=== PATIENT | female | born 1945 | race Caucasian/White ===

== ENCOUNTER → 2017-01-22 | Day surgery (SDC) | payer OTHER ==
[~2017-01-22] VITALS: Ht 149.9 cm; Wt 75.5 kg
[~2017-01-22] MED LIST: AMLO2.5T PO; CALC8.5C CHEW; CETI10 PO; CHLORHEXIDINE GLUCONATE 2 % 1 PACK (2 CLOTHS) TOPICAL PRN; CO Q10CA PO; DYAZ37.52 PO; ESTR0.5T PO; FAMOTIDINE 20 MG/2 ML VIAL ONE; FISH1000 PO; FISH500C PO; FOLI400T30 PO; FOSA35TA2 PO; FOSA70TA PO; GEMF600 PO; INSULIN HUMAN REGULAR 1,000 UNITS/10 ML VIAL SQ PRN; KETOROLAC TROMETHAMINE 60 MG/2 ML (IM) VIAL IM ONE; LACTATED RINGER'S 1000 ML IV PRN; LEVO88TA2 PO; MAGN400T24 PO; MEDR2.5T4 PO; METOPROLOL TARTRATE 25 MG TAB PO PRN; MIDAZOLAM HCL 2 MG/2 ML VIAL ONE; OMEP20CA5 PO; OMEP20TA PO; ONDANSETRON HCL 4 MG/2 ML VIAL IV PUSH ONE; OXYC-360 PO; OYST500T77 PO; POVIDONE IODINE 5% (ANTISEPSIS KIT) 4 APPLICATIONS EACH NARE PRN; PROPOFOL 200 MG/20 ML AMP IV ONE; SODIUM CHLORID 0.9% 500 ML IV PRN; TAB-TAB PO; TRIL135C PO; [UNRECOGNIZED DRUG - OTHER]; [UNRECOGNIZED DRUG - OTHER] PO; ceFAZolin 1,000 MG/NS 100 ML IV SCH; prempro PO
[2017-01-22 08:32] VITALS: BP 145/81; PULSE 86; RESP 18; TEMP 98.3; O2SAT 96
[2017-01-22 10:55] VITALS: PULSE 84
[2017-01-22 11:50] VITALS: PULSE 83
[2017-01-22 12:40] VITALS: BP 150/69; PULSE 62; RESP 16; TEMP 97.9; O2SAT 95
--- NOTE | 2017-01-22 14:16 | PD.OP ---
cc: Berta Schneider MD Operative Report Date of Surgery: Jan 22, 2017 Preoperative Diagnosis: (1) Endometrial polyp (2) Postmenopausal bleeding Postoperative Diagnosis: (1) Endometrial polyp (2) Postmenopausal bleeding Procedure: Hysteroscopy with polpectomy and dilation and curettage Anesthesia: General by LMA; Dr. Ferrera Surgeon: Anastacia Estes Lead Rider(s): Charlie Belcher Surgeon: n/a Operation and Findings: Indications: [-] Findings: Patient was found on hysteroscopic view to have polypoid endometrium in the fundus of the uterus confirmed to be removed by repeat hysteroscopy post dilation and curettage. She sounded to 11cm. Procedure: Patient was brought to the OR and laid supine on the table. After inducing general anesthesia and inserting LMA she was positioned in low stirrups in dorso-lithotomy position. An open-sided speculum was placed in the vagina after Betadine prep and time out. The anterior lip of the cervix was grasped with a single tooth tenaculum, and the cervix was dilated to accept a standard rigid hysteroscope. After viewing, the polypoid tissue was extracted by medium curette. The endometrium was thoroughly sampled using a medium sharp curet. Moderate tissue returned. A separate curettage of the cervix yielded only small tissue. A second hysteroscopic view confirmed that all the findings described above were included in the specimen. The procedure being complete, the instruments were removed, the patient was replaced supine and she was awakened. She was transferred to the PACU breathing on her own in stable condition. Sponge, needle, and instrument counts were correct. Anastacia Estes MD Jan 22, 2017 14:16
== END | disposition home or self-care (01) ==
LOC: PHSDC 07:49
PROVIDERS: ATTEND Obstetrics & Gynecology
DX: N84.0 Polyp of corpus uteri (principal); N95.0 Postmenopausal bleeding; N88.2 Stricture and stenosis of cervix uteri; E11.9 Type 2 diabetes mellitus without complications; E03.9 Hypothyroidism, unspecified
CPT/HCPCS: 00952; 58558; 82948; 88305; 88361; J0690; J1885; J2250; J2405; J7120

== ENCOUNTER 2017-05-01 15:24 | Emergency (ER) | payer OTHER ==
[~2017-05-01] VITALS: Ht 152.4 cm; Wt 76.3 kg
[~2017-05-01 15:24] MED LIST changes: -CHLORHEXIDINE GLUCONATE 2 % 1 PACK (2 CLOTHS) TOPICAL PRN; -DYAZ37.52 PO; -FAMOTIDINE 20 MG/2 ML VIAL ONE; -FISH500C PO; -FOLI400T30 PO; -FOSA35TA2 PO; -GEMF600 PO; -INSULIN HUMAN REGULAR 1,000 UNITS/10 ML VIAL SQ PRN; -KETOROLAC TROMETHAMINE 60 MG/2 ML (IM) VIAL IM ONE; -LACTATED RINGER'S 1000 ML IV PRN; -METOPROLOL TARTRATE 25 MG TAB PO PRN; -MIDAZOLAM HCL 2 MG/2 ML VIAL ONE; -OMEP20CA5 PO; -OMEP20TA PO; +OMEP20TA93 PO; -ONDANSETRON HCL 4 MG/2 ML VIAL IV PUSH ONE; -OXYC-360 PO; -OYST500T77 PO; -POVIDONE IODINE 5% (ANTISEPSIS KIT) 4 APPLICATIONS EACH NARE PRN; -PROPOFOL 200 MG/20 ML AMP IV ONE; -SODIUM CHLORID 0.9% 500 ML IV PRN; -TAB-TAB PO; -TRIL135C PO; -[UNRECOGNIZED DRUG - OTHER]; -[UNRECOGNIZED DRUG - OTHER] PO; -ceFAZolin 1,000 MG/NS 100 ML IV SCH; -prempro PO
[2017-05-01 15:36] VITALS: BP 152/69; PULSE 81; RESP 16; TEMP 97.6; O2SAT 95
[2017-05-01] MEDS ORDERED: NASAL CROM (15:59)
[2017-05-01] MEDS ORDERED: METF500T PO (15:59)
[2017-05-01] MEDS ORDERED: GABA100C4 PO (15:59)
[2017-05-01] MEDS ORDERED: LOSA25TA PO (15:59)
[2017-05-01] MEDS ORDERED: NAPR500T2 PO (15:59)
[2017-05-01] MEDS ORDERED: ROBA750T PO (15:59)
[2017-05-01] MEDS ORDERED: SODIUM CHLOR 0.9% 1000 ML INJ 1,000 ML IV ONE (16:07)
[2017-05-01] MEDS ORDERED: SODIUM CHLORIDE 0.9% FLUSH 10 ML FLUSH IVF PRN (16:15)
[2017-05-01] MEDS ORDERED: diphenhydrAMINE HCL 50 MG/ML VIAL IVP ONE (16:15)
[2017-05-01] MEDS ORDERED: PROCHLORPERAZINE INJ 10 MG/2 ML VIAL IVP ONE (16:15)
[2017-05-01] MEDS ORDERED: MORPHINE SULFATE 8 MG/ML INJ IV PUSH ONE (16:15)
--- NOTE | 2017-05-01 16:19 | PD ---
HPI Chief Complaint: Headache Time Seen by Provider: 15:41 Travel History International Travel<30 days: No Contact w/Intl Traveler<30days: No Traveled to known affect area: No History of Present Illness HPI The patient is a 71-year-old female who presents to the emergency department for headache. Patient is a 1 month history of headache. The patient 's headache started over the bilateral cervical neck area, radiates to the posterior aspect of the head, and has progressed over the last month. The headache now radiates to the frontal temporal or bilateral, throbbing, extends from the neck up into the head, and is not improved with massage. The patient was taken Tylenol and Excedrin with mild relief of her symptoms. However, she saw her primary physician yesterday who changed her to naproxen and Robaxin, however, patient's headache has progressed. She denies any trauma to the neck, does state she's been getting massages but denies any chiropractor manipulation. She does complain of mild nausea secondary to the headache but denies any photophobia or phonophobia. She denies any acute weakness of the upper or lower extremities. She states she has had no imaging of the brain since the onset of the headache. [facility] Past Medical History Cancer: No Cardiovascular Problems: Yes (htn on meds) Diabetes: Yes (type 2) Patient Takes Glucophage: No Diminished Hearing: No Endocrine: No Gastrointestinal Disorders: No Glaucoma: No Genitourinary: No Hepatitis: No Hiatal Hernia: No Hypertension: Yes Immune Disorder: No Musculoskeletal: Yes (OSTEOPOROSIS, LEG CRAMPS) Neurologic: No Psychiatric: No Respiratory: Yes (POST NASAL DRIP) Thyroid Disease: Yes (HYPOTHYROIDISM) Tetanus Vaccination: Unknown ?: Not Past Surgical History Abdominal Surgery: Yes (gallbladder removed) AICD: No Cardiac Surgery: No Ear Surgery: No Endocrine Surgery: No Eye Surgery: No Genitourinary Surgery: No Gynecologic Surgery: No Joint Replacement: No Neurologic Surgery: No Oral Surgery: No Pacemaker: No Thoracic Surgery: No Other Surgery: Yes (COLONOSCOPY) Social History Alcohol Use: No Tobacco Use: No Substance Use: No Allergies-Medications (Allergen,Severity, Reaction): Coded Allergies: chlorpheniramine (Unverified Adverse Reaction, Severe, Shortness of Breath , 05/01/17) codeine (Unverified Adverse Reaction, Severe, Shortness of Breath, 05/01/17 ) guaifenesin (Unverified Adverse Reaction, Severe, Shortness of Breath, 05/01/17) hydrocodone (Unverified Adverse Reaction, Severe, Shortness of Breath, 05/01/17) Reported Meds & Prescriptions Reported Meds & Active Scripts Active Reported Gabapentin 100 Mg Cap 100 Mg PO TID Robaxin (Methocarbamol) 750 Mg Tab 750 Mg PO TID Naproxen 500 Mg Tab 500 Mg PO BID [Nasal Crom] Metformin (Metformin HCl) 500 Mg Tab 500 Mg PO DAILY With a meal Losartan (Losartan Potassium) 25 Mg Tab 12.5 Mg PO DAILY Medroxyprogesterone Acetate 2.5 Mg Tablet PO DAILY Estradiol 0.5 Mg Tab 0.5 Mg PO DAILY Magnesium (Magnesium Oxide) 400 Mg Tablet 250 Mg PO DAILY Omeprazole 20 Mg Tab 20 Mg PO DAILY Co Q 10 (Coenzyme Q10 (Ubidecarenone)) 10 Mg Cap PO DAILY Fish Oil ([place]-3 Fatty Acids) 1,000 Mg Cap PO DAILY Levothyroxine (Levothyroxine Sodium) 88 Mcg Tab 88 Mcg PO DAILY Viactiv (Calcium-Vitamins D & K) 500-500-40 Mg-Unit-Mcg Chew 1 Ea CHEW Fosamax (Alendronate Sodium) 70 Mg Tab 35 Mg PO Q7D Review of Systems Except as stated in HPI: all other systems reviewed are Neg General / Constitutional: No: Fever Eyes: No: Blurred Vision, Photophobia HENT: Positive: Headaches, Neck Pain, No: Lightheadedness Cardiovascular: No: Chest Pain or Discomfort Respiratory: No: Shortness of Breath Gastrointestinal: No: Nausea, Vomiting, Abdominal Pain Musculoskeletal: No: Weakness Neurologic: Positive: Headache, No: Dizziness, Focal Abnormalities, Change in Mentation, Slurred Speech, Paresthesia, Sensory Disturbance Physical Exam Narrative GENERAL: Awake, alert, pleasant 71-year-old female who appears her stated age and appears to be in moderate discomfort. SKIN: Focused skin assessment warm/dry. HEAD: Atraumatic. Normocephalic. EYES: Pupils equal and round. Pupils are 4 mm bilateral and reactive. EOMs are intact. Patient is able to see fingers at a distance of 2 feet without difficulty. No evidence of Corine's syndrome. ENT: No nasal bleeding or discharge. Mucous membranes pink and moist. NECK: Trachea midline. No JVD. Mild tenderness of the right trapezius and the paracervical vertebral muscles bilateral. No meningeal signs. CARDIOVASCULAR: Regular rate and rhythm. No murmur appreciated. RESPIRATORY: No accessory muscle use. Clear to auscultation. Breath sounds equal bilaterally. GASTROINTESTINAL: Abdomen soft, non-tender, nondistended. MUSCULOSKELETAL: No obvious deformities. No clubbing. No cyanosis. No edema. NEUROLOGICAL: Awake and alert. No obvious cranial nerve deficits. Motor grossly within normal limits. Normal speech. Nonfocal on exam. Oriented 4. PSYCHIATRIC: Appropriate mood and affect; insight and judgment normal. Data Data Last Documented VS Vital Signs Date Time Temp Pulse Resp B/P (MAP) Pulse Ox O2 Delivery O2 Flow Rate FiO2 05/01/17 15:42 16 95 Room Air 05/01/17 15:36 97.6 81 152/69 (96) Orders Orders Complete Blood Count With Diff (05/01/17 16:07) Basic Metabolic Panel (Bmp) (05/01/17 16:07) W[place]gren Sedimentation Rate (05/01/17 16:07) Prothrombin Time / Inr (Pt) (05/01/17 16:07) Act Partial Throm Time (Ptt) (05/01/17 16:07) Ct Brain W/O Iv Contrast(Rout) (05/01/17 16:07) Ecg Monitoring (05/01/17 16:07) Iv Access Insert/Monitor (05/01/17 16:07) Oximetry (05/01/17 16:07) Sodium Chloride 0.9% Flush (Ns Flush) (05/01/17 16:15) Prochlorperazine Inj (Compazine Inj) (05/01/17 16:15) Diphenhydramine Inj (Benadryl Inj) (05/01/17 16:15) Sodium Chlor 0.9% 1000 Ml Inj (Ns 1000 M (05/01/17 16:07) Morphine Inj (Morphine Inj) (05/01/17 16:15) Ketorolac Inj (Toradol Inj) (05/01/17 17:00) Ed Discharge Order (05/01/17 17:07) Labs Laboratory Tests Test 05/01/17 16:20 White Blood Count 6.7 TH/MM3 Red Blood Count 4.96 MIL/MM3 Hemoglobin 15.1 GM/DL Hematocrit 44.6 % Mean Corpuscular Volume 89.9 FL Mean Corpuscular Hemoglobin 30.4 PG Mean Corpuscular Hemoglobin Concent 33.9 % Red Cell Distribution Width 12.1 % Platelet Count 208 TH/MM3 Mean Platelet Volume 9.5 FL Neutrophils (%) (Auto) 70.6 % Lymphocytes (%) (Auto) 18.8 % Monocytes (%) (Auto) 7.1 % Eosinophils (%) (Auto) 3.2 % Basophils (%) (Auto) 0.3 % Neutrophils # (Auto) 4.7 TH/MM3 Lymphocytes # (Auto) 1.3 TH/MM3 Monocytes # (Auto) 0.5 TH/MM3 Eosinophils # (Auto) 0.2 TH/MM3 Basophils # (Auto) 0.0 TH/MM3 CBC Comment DIFF FINAL Differential Comment Blood Urea Nitrogen 21 MG/DL Creatinine 0.92 MG/DL Random Glucose 118 MG/DL Calcium Level 9.7 MG/DL Sodium Level 136 MEQ/L Potassium Level 3.9 MEQ/L Chloride Level 100 MEQ/L Carbon Dioxide Level 25.3 MEQ/L Anion Gap 11 MEQ/L Estimat Glomerular Filtration Rate 60 ML/MIN MDM Medical Decision Making Medical Screen Exam Complete: Yes Emergency Medical Condition: Yes Medical Record Reviewed: Yes Interpretation(s) Laboratory Tests Test 05/01/17 16:20 White Blood Count 6.7 TH/MM3 Red Blood Count 4.96 MIL/MM3 Hemoglobin 15.1 GM/DL Hematocrit 44.6 % Mean Corpuscular Volume 89.9 FL Mean Corpuscular Hemoglobin 30.4 PG Mean Corpuscular Hemoglobin Concent 33.9 % Red Cell Distribution Width 12.1 % Platelet Count 208 TH/MM3 Mean Platelet Volume 9.5 FL Neutrophils (%) (Auto) 70.6 % Lymphocytes (%) (Auto) 18.8 % Monocytes (%) (Auto) 7.1 % Eosinophils (%) (Auto) 3.2 % Basophils (%) (Auto) 0.3 % Neutrophils # (Auto) 4.7 TH/MM3 Lymphocytes # (Auto) 1.3 TH/MM3 Monocytes # (Auto) 0.5 TH/MM3 Eosinophils # (Auto) 0.2 TH/MM3 Basophils # (Auto) 0.0 TH/MM3 CBC Comment DIFF FINAL Differential Comment Blood Urea Nitrogen 21 MG/DL Creatinine 0.92 MG/DL Random Glucose 118 MG/DL Calcium Level 9.7 MG/DL Sodium Level 136 MEQ/L Potassium Level 3.9 MEQ/L Chloride Level 100 MEQ/L Carbon Dioxide Level 25.3 MEQ/L Anion Gap 11 MEQ/L Estimat Glomerular Filtration Rate 60 ML/MIN CT of the brain reveals normal examination for patient of this age Differential Diagnosis Differential diagnosis includes tension headache, occipital neuralgia, radiculopathy, subarachnoid hemorrhage, intracranial tumor, glaucoma, temporal arteritis, migraine, carotid/retrieval artery dissection. Narrative Course IV was established, labs are drawn and sent, and the patient was placed on cardiac telemetry monitoring and continuous pulse oximetry monitoring. The patient was administered Compazine, Benadryl, morphine, and IV fluids. CT of the brain was ordered. CT the brain was negative. The patient was reevaluated at 5 PM, her headache had significantly improved. A CT the brain was negative and creatinine was normal, the patient was administered Toradol 15 mg intravenously. The patient's sedimentation rate is pending, however, I doubt temporal arteritis. The patient has no meningeal signs or fever, headache has been intermittent for one month, I doubt subarachnoid hemorrhage or meningitis. The patient is advised to follow-up with her primary physician on an outpatient basis and if symptoms persist follow-up with neurology. She also notes she is scheduled for outpatient physical therapy in regards to the muscle spasms. I will write Fioricet as needed when necessary for pain, however, she is advised to avoid taking medications 2 often as she may get rebound headaches. The patient agrees and understands. She is stable for discharge home. The patient's will drive her home. Diagnosis Primary Impression: Cephalgia Qualified Codes: R51 - Headache Patient Instructions: General Instructions Additional Instructions: Medications as directed. Follow-up with her primary physician. Return if symptoms worsen or progress. Med/Other Pt SpecificInfo: Prescription(s) given Scripts Ukywqxnqvy-Gjnzszcxxooiu-Eezzntsv (Fioricet) 50-300-40 Mg Cap 1 CAP PO Q4H Y for HEADACHE, #12 CAP 0 Refills Prov: Angelo Ocasio MD 05/01/17 Disposition: 01 DISCHARGE HOME Condition: Stable Angelo Ocasio MD May 01, 2017 16:19
[2017-05-01 16:37] LABS: AUTOMATED NEUTROPHIL # 4.7 TH/MM3 (1.8-7.7); BASOPHIL % 0.3 % (0.0-2.0); EOSINOPHIL # 0.2 TH/MM3 (0-0.4); EOSINOPHIL % 3.2 % (0.0-4.0); HEMATOCRIT 44.6 % (35.0-46.0); HEMO FLAGS DIFF FINAL; LYMPH % 18.8 % (9.0-44.0); LYMPHOCYTE # 1.3 TH/MM3 (1.0-4.8); MEAN CELL VOLUME 89.9 FL (80.0-100.0); MEAN CORPUSCULAR HEMOGLOBIN 30.4 PG (27.0-34.0); MEAN CORPUSCULAR HGB CONC 33.9 % (32.0-36.0); MONO % 7.1 % (0.0-8.0); NEUT % 70.6 % (16.0-70.0); PLATELET COUNT 208 TH/MM3 (150-450); RED BLOOD COUNT 4.96 MIL/MM3 (4.00-5.30); RED CELL DISTRIBUTION WIDTH 12.1 % (11.6-17.2); WHITE BLOOD COUNT 6.7 TH/MM3 (4.0-11.0)
--- NOTE | 2017-05-01 16:40 | RADRPT ---
EXAM DATE/TIME: 05/01/2017 16:28 [facility] COMPARISON: No previous studies available for comparison. INDICATIONS : Cephalgia. RADIATION DOSE: 57.57 CTDIvol (mGy) MEDICAL HISTORY : Hypothyroidism. Diabetes mellitus type 2. Hypertension. SURGICAL HISTORY : Cholecystectomy. ENCOUNTER: Initial ACUITY: 1 day PAIN SCALE: 10/10 LOCATION: cranial TECHNIQUE: Multiple contiguous axial images were obtained of the head. Using automated exposure control and adj ustment of the mA and/or kV according to patient size, radiation dose was kept as low as reasonably a chievable to obtain optimal diagnostic quality images. DICOM format image data is available electro nically for review and comparison. FINDINGS: CEREBRUM: The ventricles are normal for age. No evidence of midline shift, mass lesion, hemorrhage or acute in farction. No extra-axial fluid collections are seen. POSTERIOR FOSSA: The cerebellum and brainstem are intact. The 4th ventricle is midline. The cerebellopontine angle i s unremarkable. EXTRACRANIAL: The visualized portion of the orbits is intact. SKULL: The calvaria is intact. No evidence of skull fracture. CONCLUSION: Normal examination for a patient of this age. James Chamorro MD on May 01, 2017 at 16:37 Board Certified Radiologist. This report was verified electronically.
[2017-05-01 16:43] LABS: POTASSIUM 3.9 MEQ/L (3.5-5.1)
[2017-05-01 16:46] LABS: BICARBONATE 25.3 MEQ/L (21.0-32.0)
[2017-05-01] MEDS ORDERED: KETOROLAC TROMETHAMINE 30 MG/ML (IVP) VIAL IV PUSH ONE (17:00)
[2017-05-01] MEDS ORDERED: BUTA1CAP PO (17:14)
[2017-05-01 17:23] LABS: APTT (PATIENT) 23.8 SEC (24.3-30.1); INTERNATIONAL NORMALIZED RATIO 0.9 RATIO; PROTHROMBIN TIME - PATIENT 10.4 SEC (9.8-11.6)
[2017-05-01 17:39] VITALS: RESP 16; O2SAT 93
[2017-05-01 17:40] VITALS: BP 189/89
== END 2017-05-01 17:58 | disposition home or self-care (01) ==
LOC: PHED 15:24
DX: R51 Headache (principal); E03.9 Hypothyroidism, unspecified; E11.9 Type 2 diabetes mellitus without complications; I10 Essential (primary) hypertension; Z79.84 Long term (current) use of oral hypoglycemic drugs; Z79.899 Other long term (current) drug therapy
CPT/HCPCS: 70450; 80048; 85025; 85610; 85652; 85730; 96361; 96374; 96375; 99285; J0780; J1200; J1885; J2270; J7030

== ENCOUNTER 2017-11-25 14:46 | Observation (INO) | payer OTHER ==
[~2017-11-25] VITALS: Ht 152.4 cm; Wt 73.6 kg
[~2017-11-25 14:46] MED LIST changes: -AMLO2.5T PO; +BUTA1CAP PO; -CETI10 PO; +GABA100C4 PO; +LOSA25TA PO; +METF500T PO; +NAPR500T2 PO; +NASAL CROM; +ROBA750T PO
[2017-11-25 15:02] VITALS: BP 160/75; PULSE 89; RESP 16; TEMP 97.7; O2SAT 96
--- NOTE | 2017-11-25 15:40 | PD ---
HPI Chief Complaint: GI Complaint Time Seen by Provider: 15:24 Travel History International Travel<30 days: No Contact w/Intl Traveler<30days: No Traveled to known affect area: No History of Present Illness HPI This is a 71-year-old female who presents to the emergency department with lightheadedness and dizziness that started immediately after eating lunch today associated with one episode of vomiting constant, severe, persistent in the emergency department. Her friend said she found her on the floor in the house. The patient says she did not pass out but she felt very very weak. She denies any fevers or chills. She denies any abdominal or chest pain. She has never had symptoms like this before. PFSH Past Medical History Cancer: No Cardiovascular Problems: Yes (htn on meds) Diabetes: Yes Diminished Hearing: No Endocrine: No Gastrointestinal Disorders: No Glaucoma: No Genitourinary: No Hepatitis: No Hiatal Hernia: No Hypertension: Yes Immune Disorder: No Musculoskeletal: Yes (OSTEOPOROSIS, LEG CRAMPS) Neurologic: No Psychiatric: No Respiratory: Yes (POST NASAL DRIP) Thyroid Disease: Yes (HYPOTHYROIDISM) Past Surgical History Abdominal Surgery: Yes (gallbladder removed) AICD: No Cardiac Surgery: No Ear Surgery: No Endocrine Surgery: No Eye Surgery: No Genitourinary Surgery: No Gynecologic Surgery: No Joint Replacement: No Neurologic Surgery: No Oral Surgery: No Pacemaker: No Thoracic Surgery: No Other Surgery: Yes (COLONOSCOPY) Social History Alcohol Use: No Tobacco Use: No Substance Use: No Allergies-Medications (Allergen,Severity, Reaction): Coded Allergies: chlorpheniramine (Unverified Adverse Reaction, Severe, Shortness of Breath , 11/25/17) codeine (Unverified Adverse Reaction, Severe, Shortness of Breath, 11/25/17 ) guaifenesin (Unverified Adverse Reaction, Severe, Shortness of Breath, ) hydrocodone (Unverified Adverse Reaction, Severe, Shortness of Breath, ) Reported Meds & Prescriptions Reported Meds & Active Scripts Active Fioricet (Ppbrdwtsab-Iwhexowzrurcb-Mhoubmvo) 50-300-40 Mg Cap 1 Cap PO Q4H PRN Reported Gabapentin 100 Mg Cap 100 Mg PO TID Robaxin (Methocarbamol) 750 Mg Tab 750 Mg PO TID Naproxen 500 Mg Tab 500 Mg PO BID [Nasal Crom] Metformin (Metformin HCl) 500 Mg Tab 500 Mg PO DAILY With a meal Losartan (Losartan Potassium) 25 Mg Tab 12.5 Mg PO DAILY Medroxyprogesterone Acetate 2.5 Mg Tablet PO DAILY Estradiol 0.5 Mg Tab 0.5 Mg PO DAILY Magnesium (Magnesium Oxide) 400 Mg Tablet 250 Mg PO DAILY Omeprazole 20 Mg Tab 20 Mg PO DAILY Co Q 10 (Coenzyme Q10 (Ubidecarenone)) 10 Mg Cap PO DAILY Fish Oil ([place]-3 Fatty Acids) 1,000 Mg Cap PO DAILY Levothyroxine (Levothyroxine Sodium) 88 Mcg Tab 88 Mcg PO DAILY Viactiv (Calcium-Vitamins D & K) 500-500-40 Mg-Unit-Mcg Chew 1 Ea CHEW Fosamax (Alendronate Sodium) 70 Mg Tab 35 Mg PO Q7D Review of Systems Except as stated in HPI: all other systems reviewed are Neg Physical Exam Narrative GENERAL: pale-appearing SKIN: Clammy and cool HEAD: Atraumatic. Normocephalic. EYES: Pupils equal and round. No injection or drainage. ENT: Moist mucous membranes NECK: Trachea midline. CARDIOVASCULAR: Regular rate and rhythm. No murmur appreciated. RESPIRATORY: Clear to auscultation. Breath sounds equal bilaterally. GASTROINTESTINAL: Abdomen soft, non-tender, nondistended. MUSCULOSKELETAL: No obvious deformities. NEUROLOGICAL: Awake and alert. No obvious cranial nerve deficits. Moving all extremities. PSYCHIATRIC: Appropriate mood and affect; insight and judgment normal. Data Data Last Documented VS Vital Signs Date Time Temp Pulse Resp B/P (MAP) Pulse Ox O2 Delivery O2 Flow Rate FiO2 11/25/17 18:39 88 16 165/80 (108) 95 Room Air 11/25/17 15:02 97.7 Orders Orders Complete Blood Count With Diff (11/25/17 15:35) Comprehensive Metabolic Panel (11/25/17 15:35) ^ Insert Iv (11/25/17 15:35) Lipase (11/25/17 15:35) Urinalysis - C+S If Indicated (11/25/17 15:35) Troponin I (11/25/17 15:35) Electrocardiogram (11/25/17 ) Sodium Chlor 0.9% 1000 Ml Inj (Ns 1000 M (11/25/17 15:45) Magnesium (Mg) (11/25/17 15:48) Blood Culture (11/25/17 17:05) Piperacil-Tazo 3.375 Gm Premix (Zosyn 3. (11/25/17 17:15) Ct Abd/Pel W Iv Contrast(Rout) (11/25/17 ) Iohexol 350 Inj (Omnipaque 350 Inj) (11/25/17 17:38) Chest, Single Ap (11/25/17 ) Admit Order (Ed Use Only) (11/25/17 18:56) Gabapentin (Neurontin) (11/26/17 09:00) Levothyroxine (Synthroid) (11/26/17 06:00) Losartan (Cozaar) (11/26/17 09:00) Labs Laboratory Tests Test 11/25/17 15:50 11/25/17 16:30 White Blood Count 15.0 TH/MM3 Red Blood Count 4.99 MIL/MM3 Hemoglobin 15.7 GM/DL Hematocrit 45.4 % Mean Corpuscular Volume 91.0 FL Mean Corpuscular Hemoglobin 31.5 PG Mean Corpuscular Hemoglobin Concent 34.7 % Red Cell Distribution Width 11.9 % Platelet Count 246 TH/MM3 Mean Platelet Volume 9.1 FL Neutrophils (%) (Auto) 83.2 % Lymphocytes (%) (Auto) 7.3 % Monocytes (%) (Auto) 5.6 % Eosinophils (%) (Auto) 1.3 % Basophils (%) (Auto) 2.6 % Neutrophils # (Auto) 12.5 TH/MM3 Lymphocytes # (Auto) 1.1 TH/MM3 Monocytes # (Auto) 0.8 TH/MM3 Eosinophils # (Auto) 0.2 TH/MM3 Basophils # (Auto) 0.4 TH/MM3 CBC Comment AUTO DIFF Differential Total Cells Counted 100 Neutrophils % (Manual) 74 % Band Neutrophils % 11 % Lymphocytes % 9 % Monocytes % 3 % Eosinophils % 1 % Basophils % 2 % Neutrophils # (Manual) 12.8 TH/MM3 Differential Comment FINAL DIFF MANUAL Platelet Estimate NORMAL Platelet Morphology Comment CLUMPED Red Cell Morphology Comment NORMAL Blood Urea Nitrogen 21 MG/DL Creatinine 1.00 MG/DL Random Glucose 135 MG/DL Total Protein 7.7 GM/DL Albumin 3.7 GM/DL Calcium Level 9.5 MG/DL Alkaline Phosphatase 29 U/L Aspartate Amino Transf (AST/SGOT) 31 U/L Alanine Aminotransferase (ALT/SGPT) 38 U/L Total Bilirubin 0.3 MG/DL Sodium Level 139 MEQ/L Potassium Level 3.9 MEQ/L Chloride Level 104 MEQ/L Carbon Dioxide Level 23.8 MEQ/L Anion Gap 11 MEQ/L Estimat Glomerular Filtration Rate 55 ML/MIN Magnesium Level 2.1 MG/DL Troponin I LESS THAN 0.02 NG/ML Lipase 132 U/L Urine Color YELLOW Urine Turbidity CLEAR Urine pH 6.0 Urine Specific [place] GREATER/EQUAL 1.030 Urine Protein 300 OR GREATER mg/dL Urine Glucose (UA) NEG mg/dL Urine Ketones TRACE mg/dL Urine Occult Blood TRACE Urine Nitrite NEG Urine Bilirubin NEG Urine Urobilinogen 0.2 MG/DL Urine Leukocyte Esterase NEG Urine WBC 0-2 /hpf Urine Squamous Epithelial Cells 0-5 /hpf Microscopic Urinalysis Comment CULT NOT INDICATED MDM Medical Decision Making Medical Screen Exam Complete: Yes Emergency Medical Condition: Yes Interpretation(s) EKG: Normal sinus rhythm, frequent PVCs Leukocytosis with 11% bands Electrolytes are reassuring Troponin is normal Lipase is 132 Blood Irma Farrell MD November 25, 2017 15:40
[2017-11-25] MEDS ORDERED: SODIUM CHLOR 0.9% 1000 ML INJ 1,000 ML IV ONE ×2 (15:45→23:15)
[2017-11-25 16:02] LABS: AUTOMATED NEUTROPHIL # 12.5 TH/MM3 (1.8-7.7); BASOPHIL # 0.4 TH/MM3 (0-0.2); BASOPHIL % 2.6 % (0.0-2.0); EOSINOPHIL # 0.2 TH/MM3 (0-0.4); EOSINOPHIL % 1.3 % (0.0-4.0); HEMATOCRIT 45.4 % (35.0-46.0); HEMOGLOBIN 15.7 GM/DL (11.6-15.3); LYMPH % 7.3 % (9.0-44.0); LYMPHOCYTE # 1.1 TH/MM3 (1.0-4.8); MEAN CORPUSCULAR HEMOGLOBIN 31.5 PG (27.0-34.0); MEAN CORPUSCULAR HGB CONC 34.7 % (32.0-36.0); MEAN PLATELET VOLUME 9.1 FL (7.0-11.0); MONO % 5.6 % (0.0-8.0); MONOCYTE # 0.8 TH/MM3 (0-0.9); NEUT % 83.2 % (16.0-70.0); PLATELET COUNT 246 TH/MM3 (150-450); RED BLOOD COUNT 4.99 MIL/MM3 (4.00-5.30); RED CELL DISTRIBUTION WIDTH 11.9 % (11.6-17.2)
[2017-11-25 16:16] LABS: CHLORIDE 104 MEQ/L (98-107); SODIUM (NA) 139 MEQ/L (136-145)
[2017-11-25 16:20] LABS: ALBUMIN 3.7 GM/DL (3.4-5.0); CALCIUM 9.5 MG/DL (8.5-10.1)
[2017-11-25 16:21] LABS: BICARBONATE 23.8 MEQ/L (21.0-32.0); BLOOD UREA NITROGEN 21 MG/DL (7-18); GLUCOSE,RANDOM 135 MG/DL (74-106)
[2017-11-25 16:22] LABS: BANDS 11 % (0-6); BASOPHILS 2 % (0-2); LYMPHOCYTES 9 % (9-44); MONOCYTES 3 % (0-8); NEUTROPHIL # MANUAL DIFF 12.8 TH/MM3 (1.8-7.7); POLYS (SEG NEUTROPHILS) 74 % (16-70)
[2017-11-25 16:24] LABS: ALT (GPT) 38 U/L (10-53); AST (GOT) 31 U/L (15-37); GLOMERULAR FILTRATION RATE 55 ML/MIN (>89)
[2017-11-25 16:25] LABS: TOTAL BILIRUBIN ADULT 0.3 MG/DL (0.2-1.0); TOTAL PROTEIN 7.7 GM/DL (6.4-8.2)
[2017-11-25 16:26] LABS: ALKALINE PHOSPHATASE 29 U/L (45-117)
[2017-11-25 16:28] LABS: TROPONIN I LESS THAN 0.02 NG/ML (0.02-0.05)
[2017-11-25 16:40] LABS: BILIRUBIN, URINE NEG (NEG); BLOOD, URINE TRACE (NEG); GLUCOSE,URINE NEG (NEG); KETONE, URINE TRACE mg/dL (NEG); NITRITE,URINE NEG (NEG); URINE COLOR YELLOW (YELLW/STRAW); URINE LEUKOCYTE ESTERASE NEG (NEG)
[2017-11-25 16:52] LABS: SQUAMOUS EPITHELIAL CELL URINE 0-5 /hpf (0-5); WBC, URINE 0-2 /hpf (0-5)
[2017-11-25] MEDS ORDERED: PIPERACIL-TAZO 3.375 GM PREMIX 50 ML IV ONE (17:15)
[2017-11-25 17:30] VITALS: BP 150/70; PULSE 100; RESP 20; O2SAT 96
[2017-11-25] MEDS ORDERED: METFORMIN HOLD POST IV CONTRAST SCH (17:30)
[2017-11-25] MEDS ORDERED: IOHEXOL 350 MG/ML 10 ML VIAL (for RAD DIAG) IVCONTRAST ONE (17:38)
--- NOTE | 2017-11-25 17:56 | RADRPT ---
EXAM DATE: 11/25/2017 5:42 PM EDT AGE/SEX: 71 years / Female INDICATIONS: Vomiting and weakness. CLINICAL DATA: This is the patient's initial encounter. Patient reports that signs and symptoms have been present for 1 day and indicates a pain score of 0/10. MEDICAL/SURGICAL HISTORY: Hypertension. Diabetes. Cholecystectomy. ORAL CONTRAST: No oral contrast ingested. RADIATION DOSE: 16.93 CTDI (mGy) COMPARISON: No prior [facility] exams available for comparison. TECHNIQUE: Multiple contiguous axial images were obtained through the abdomen and pelvis following b olus infusion of 85 ml Omnipaque 350 (iohexol) nonionic water-soluble contrast as a single exam dos e. No oral contrast ingested. Using automated exposure control and adjustment of the mA and/or kV ac cording to patient size, the radiation dose was kept as low as reasonably achievable to obtain optima l diagnostic quality images. FINDINGS: The limited portion of lung base visualized is clear. The appearance of the liver, spleen, pancreas, adrenal glands and left kidney is within normal limits . Incidental note is made of a 2.8 cm simple cyst arising from the right kidney. The abdominal aorta is normal in caliber. There is no retroperitoneal lymphadenopathy. The visualized loops of small and large bowel are unremarkable. No free air free fluid is seen. The examination does demonstrate a small ventral hernia just below the level of the xiphoid. There is omental fat herniated into the defect. There is no free fluid within the pelvis. No iliac or inguinal adenopathy is seen. Note is made of mu ltiple fibroids within the uterus. The visualized bony structures demonstrate degenerative changes but are otherwise intact. CONCLUSION: 1. No definite abnormality to explain the patient's abdominal pain identified. 2. Incidental 2.8 cm simple cyst arising from the right kidney. 3. The patient is post cholecystectomy. 4. Fibroids within the uterus. Electronically signed by: Smooth Rojas MD 11/25/2017 5:54 PM EDT
[2017-11-25 18:39] VITALS: BP 165/80; PULSE 88; RESP 16; O2SAT 95
--- NOTE | 2017-11-25 18:53 | RADRPT ---
EXAM DATE: 11/25/2017 6:51 PM EDT AGE/SEX: 71 years / Female INDICATIONS: Vomiting since this afternoon. CLINICAL DATA: This is the patient's initial encounter. Patient reports that signs and symptoms have been present for 1 day and indicates a pain score of 0/10. MEDICAL/SURGICAL HISTORY: None. None. COMPARISON: No prior [facility] exams available for comparison. FINDINGS: A single AP view of the chest demonstrates the lungs to be symmetrically aerated without evidence of mass, infiltrate or effusion. Mild cardiomegaly. Osseous structures are intact. CONCLUSION: Mild complicated cardiomegaly otherwise negative Electronically signed by: Neil Rojas MD 11/25/2017 6:52 PM EDT
[2017-11-25] MEDS ORDERED: RESP: ALBUTEROL 2.5 MG/IPRATROPIUM 0.5 MG NEB (PRN) NEB (19:00)
[2017-11-25] MEDS ORDERED: METOCLOPRAMIDE HCL 10 MG/2 ML VIAL IV PUSH PRN (19:00)
[2017-11-25] MEDS ORDERED: GLUCAGON 1 MG/ML VIAL OTHER PRN (19:00)
[2017-11-25] MEDS ORDERED: SODIUM CHLORIDE 0.9% FLUSH 10 ML FLUSH IV FLUSH PRN (19:00)
[2017-11-25] MEDS ORDERED: ACETAMINOPHEN 325 MG TAB PO PRN ×2 (19:00)
[2017-11-25] MEDS ORDERED: NALOXONE HCL 0.4 MG/ML AMP IV PUSH PRN (19:00)
[2017-11-25] MEDS ORDERED: DEXTROSE 50% IN WATER 50 ML VIAL(D50) IV PUSH PRN (19:00)
[2017-11-25] MEDS: SODIUM CHLOR 0.9% 1000 ML INJ 1,000 ML IV SCH (19:12)
[2017-11-25] MEDS ORDERED: PILL SPLITTER OTHER PRN (19:15)
[2017-11-25] MEDS ORDERED: hydrALAZINE HCL 25 MG TAB PO PRN (19:15)
[2017-11-25] MEDS: INSULIN ASPART SUPPLEMENTAL SCALE SQ SCH (21:00)
[2017-11-25] MEDS: SODIUM CHLORIDE 0.9% FLUSH 10 ML FLUSH IV FLUSH SCH (21:00)
[2017-11-25 21:14] VITALS: BP 153/64; PULSE 75; RESP 16; O2SAT 96
[2017-11-25 21:44] VITALS: BP 142/73; PULSE 65; RESP 20; TEMP 96.8; O2SAT 98
[2017-11-26 00:20] LABS: LACTIC ACID SEPSIS PROTOCOL 2.3 mmol/L (0.4-2.0)
[2017-11-26] MEDS: PIPERACIL-TAZO 3.375 GM PREMIX 50 ML IV SCH ×2 (00:51→09:45)
[2017-11-26 04:00] VITALS: BP 147/64; PULSE 59; RESP 20; TEMP 97.3; O2SAT 96
[2017-11-26] MEDS ORDERED: LEVOTHYROXINE SODIUM 88 MCG TAB PO SCH (06:00)
[2017-11-26] MEDS: SODIUM CHLOR 0.9% 1000 ML INJ 1,000 ML IV SCH (06:24)
[2017-11-26 06:41] LABS: AUTOMATED NEUTROPHIL # 4.2 TH/MM3 (1.8-7.7); BASOPHIL % 0.6 % (0.0-2.0); EOSINOPHIL # 0.3 TH/MM3 (0-0.4); EOSINOPHIL % 4.5 % (0.0-4.0); HEMATOCRIT 38.7 % (35.0-46.0); HEMOGLOBIN 13.2 GM/DL (11.6-15.3); LYMPH % 23.1 % (9.0-44.0); LYMPHOCYTE # 1.5 TH/MM3 (1.0-4.8); MEAN CELL VOLUME 91.7 FL (80.0-100.0); MEAN CORPUSCULAR HEMOGLOBIN 31.4 PG (27.0-34.0); MEAN CORPUSCULAR HGB CONC 34.2 % (32.0-36.0); MEAN PLATELET VOLUME 9.4 FL (7.0-11.0); MONO % 6.5 % (0.0-8.0); MONOCYTE # 0.4 TH/MM3 (0-0.9); NEUT % 65.3 % (16.0-70.0); PLATELET COUNT 212 TH/MM3 (150-450); RED BLOOD COUNT 4.22 MIL/MM3 (4.00-5.30); WHITE BLOOD COUNT 6.4 TH/MM3 (4.0-11.0)
[2017-11-26 06:47] LABS: CHLORIDE 110 MEQ/L (98-107); SODIUM (NA) 143 MEQ/L (136-145)
[2017-11-26 07:03] LABS: ALKALINE PHOSPHATASE 24 U/L (45-117); ALT (GPT) 34 U/L (10-53); AST (GOT) 25 U/L (15-37); BICARBONATE 24.7 MEQ/L (21.0-32.0); BLOOD UREA NITROGEN 17 MG/DL (7-18); GLUCOSE,RANDOM 108 MG/DL (74-106); TOTAL BILIRUBIN ADULT 0.6 MG/DL (0.2-1.0); TOTAL PROTEIN 6.5 GM/DL (6.4-8.2)
[2017-11-26 07:04] LABS: CREATININE 0.83 MG/DL (0.50-1.00); GLOMERULAR FILTRATION RATE 68 ML/MIN (>89)
[2017-11-26 07:50] VITALS: BP 170/81; PULSE 93; RESP 18; TEMP 97.6; O2SAT 95
[2017-11-26] MEDS: INSULIN ASPART SUPPLEMENTAL SCALE SQ SCH (08:00)
[2017-11-26] MEDS ORDERED: PILL SPLITTER OTHER PRN (08:45)
[2017-11-26] MEDS: SODIUM CHLORIDE 0.9% FLUSH 10 ML FLUSH IV FLUSH SCH (09:00)
[2017-11-26] MEDS ORDERED: PANTOPRAZOLE SOD 20 MG DELAYED RELEASE TAB PO SCH (09:00)
[2017-11-26] MEDS ORDERED: GABAPENTIN 100 MG CAP PO SCH (09:00)
[2017-11-26] MEDS ORDERED: ESTRADIOL 1 MG TAB PO SCH (09:00)
[2017-11-26] MEDS ORDERED: LOSARTAN 25 MG TAB PO SCH (09:00)
--- NOTE | 2017-11-26 09:32 | HHI.HP ---
[facility] Service [place] [facility] Primary Care Physician Thalia Comer Do, MD Admission Diagnosis Sepsis Diagnoses: Chief Complaint: Lightheadedness Dizziness Vomiting Travel History International Travel<30 Days: No Contact w/Intl Traveler <30 Da: No Traveled to Known Affected Are: No Sepsis Criteria SIRS Criteria (2 or more): Heart rate over 90, WBC > 43117, < 4000 or > 10% bands Severe Sepsis (+one): Lactate >2 History of Present Illness Written by Vielka Jnoes, acting as scribe for Dr. Ramos on 11/26/17 at 09:26. This is a pleasant 71-year-old female patient with a known medical history of diabetes and hypertension who presented to the ED with complaints of lightheadedness, dizziness and vomiting. Patient states that she was eating a turkey sandwich for lunch and shortly after developed lightheadedness and dizziness. The symptoms persisted at work, feeling diaphoretic and nauseous, where she laid down in the bathroom feeling faint. She denies any loss of consciousness or falling. She just felt she was overall weak. Denies any reported fevers or chills, denies any cough, shortness of breath, abdominal pain , chest pain, diarrhea or dysuria. She denies ever feeling the symptoms before. Patient states that she believes her symptoms appear to be related to food poisoning, she was at her baseline prior to beginning of symptoms and denies any recent illness. PCP is Dr. Comer, who manages her diabetes and hypertension, last seen earlier this month with no changes to her medicines. Patient does admit to taking her medicines yesterday morning with no problems. Review of Systems Constitutional: COMPLAINS OF: Dizziness, DENIES: Fatigue, Fever, Chills Eyes: DENIES: Diplopia Respiratory: DENIES: Cough, Sputum production, Shortness of breath Cardiovascular: DENIES: Chest pain, Palpitations, Dyspnea on Exertion, Lower Extremity Edema Gastrointestinal: COMPLAINS OF: Nausea, Vomiting, DENIES: Abdominal pain, Black stools, Bloody stools, Constipation, Diarrhea Musculoskeletal: DENIES: Joint pain Hematologic/lymphatic: DENIES: Bruising Immunologic/allergic: DENIES: Eczema Neurologic: DENIES: Abnormal gait Psychiatric: DENIES: Anxiety Except as stated in HPI: all other systems reviewed are Neg Past Family Social History Past Medical History Diabetes Hypertension Osteoporosis Leg cramps Post nasal drip Hypothyroidism Past Surgical History Cholecystectomy D&C December 2016 Colonoscopy Reported Medications Active Fioricet (Ikolairafe-Gexgvsmyduesk-Xbdugovh) 50-300-40 Mg Cap 1 Cap PO Q4H PRN Reported Gabapentin 100 Mg Cap 100 Mg PO TID Robaxin (Methocarbamol) 750 Mg Tab 750 Mg PO TID Naproxen 500 Mg Tab 500 Mg PO BID [Nasal Crom] Metformin (Metformin HCl) 500 Mg Tab 500 Mg PO DAILY With a meal Losartan (Losartan Potassium) 25 Mg Tab 12.5 Mg PO DAILY Medroxyprogesterone Acetate 2.5 Mg Tablet PO DAILY Estradiol 0.5 Mg Tab 0.5 Mg PO DAILY Magnesium (Magnesium Oxide) 400 Mg Tablet 250 Mg PO DAILY Omeprazole 20 Mg Tab 20 Mg PO DAILY Co Q 10 (Coenzyme Q10 (Ubidecarenone)) 10 Mg Cap PO DAILY Fish Oil (Adena-3 Fatty Acids) 1,000 Mg Cap PO DAILY Levothyroxine (Levothyroxine Sodium) 88 Mcg Tab 88 Mcg PO DAILY Viactiv (Calcium-Vitamins D & K) 500-500-40 Mg-Unit-Mcg Chew 1 Ea CHEW Fosamax (Alendronate Sodium) 70 Mg Tab 35 Mg PO Q7D Allergies: Coded Allergies: chlorpheniramine (Unverified Adverse Reaction, Severe, Shortness of Breath , 11/25/17) codeine (Unverified Adverse Reaction, Severe, Shortness of Breath, 11/25/17 ) guaifenesin (Unverified Adverse Reaction, Severe, Shortness of Breath, ) hydrocodone (Unverified Adverse Reaction, Severe, Shortness of Breath, ) Active Ordered Medications Current Medications Medications (Trade) Dose Ordered Sig/Dusty Route Start Time Stop Time Status Last Admin (Neurontin) 100 mg TID PO 11/26/17 09:00 (Synthroid) 88 mcg DAILY@0600 PO 11/26/17 06:00 11/26/17 06:22 (Cozaar) 12.5 mg DAILY PO 11/26/17 09:00 Sodium Chloride 1,000 ml @ 125 mls/hr Q8H IV 11/25/17 18:56 11/26/17 06:24 (NS Flush) 2 ml UNSCH PRN IV FLUSH 11/25/17 19:00 11/25/17 22:54 (NS Flush) 2 ml BID IV FLUSH 11/25/17 21:00 (Tylenol) 650 mg Q4H PRN PO 11/25/17 19:00 (Reglan Inj) 5 mg Q6H PRN IV PUSH 11/25/17 19:00 (Tylenol) 650 mg Q6H PRN PO 11/25/17 19:00 (Narcan Inj) 0.4 mg UNSCH PRN IV PUSH 11/25/17 19:00 (D50w (Vial) Inj) 50 ml UNSCH PRN IV PUSH 11/25/17 19:00 (Glucagon Inj) 1 mg UNSCH PRN OTHER 11/25/17 19:00 (NovoLOG SUPPLEMENTAL SCALE) 1 ACHS SLIDING SCALE SQ 11/25/17 21:00 Piperacillin Sod/ Tazobactam Sod 50 ml @ 100 mls/hr Q8H IV 11/26/17 01:00 11/26/17 00:51 (Duoneb Neb) 1 ampule Q2HR NEB PRN NEB 11/25/17 19:00 (Apresoline) 25 mg Q8HR PRN PO 11/25/17 19:15 (Pill Splitter) 1 ea UNSCH PRN OTHER 11/25/17 19:15 ([facility] [place] [facility] [place] HOLD METFORMIN FOR... Q24H .XX 11/25/17 17:30 11/27/17 17:29 (Estradiol) 0.5 mg DAILY PO 11/26/17 09:00 (Robaxin) 750 mg Q8HR PO 11/26/17 14:00 (Protonix) 20 mg DAILY PO 11/26/17 09:00 Family History Maternal medical history significant for lung cancer history of smoking. Father had COPD. Social History Patient denies any tobacco, alcohol or illicit drug use. Physical Exam Vital Signs Vital Signs Date Time Temp Pulse Resp B/P (MAP) Pulse Ox O2 Delivery O2 Flow Rate FiO2 11/26/17 07:50 97.6 93 18 170/81 (110) 95 11/26/17 04:00 97.3 59 20 147/64 (91) 96 11/25/17 21:44 96.8 65 20 142/73 (96) 98 11/25/17 21:23 11/25/17 21:14 75 16 153/64 (93) 96 Room Air 11/25/17 18:39 88 16 165/80 (108) 95 Room Air 11/25/17 17:30 100 20 150/70 (96) 96 Room Air 11/25/17 15:02 97.7 89 16 160/75 (103) 96 Physical Exam GENERAL: Well-developed, well-nourished patient in NAD. SKIN: Warm and dry. No rash. HEAD: Normocephalic. Atraumatic. EYES: Pupils equal and round. No scleral icterus. No injection or drainage. ENT: No nasal bleeding or discharge. Mucous membranes pink and moist. NECK: Supple. Trachea midline. CARDIOVASCULAR: Regular rate and rhythm. S1, S2 noted. No murmur appreciated. RESPIRATORY: No accessory muscle use. Clear to auscultation. Breath sounds equal bilaterally. GASTROINTESTINAL: Abdomen soft, non-tender, nondistended. Normoactive bowel sounds x4. MUSCULOSKELETAL: No obvious deformities. Extremities without clubbing, cyanosis , or edema. NEUROLOGICAL: Awake and alert. No obvious cranial nerve deficits. Motor grossly within normal limits. 5/5 muscle strength in bilateral upper and lower extremities. Normal speech. Laboratory Laboratory Tests Test 11/25/17 15:50 11/25/17 16:30 11/25/17 21:10 11/25/17 23:55 White Blood Count 15.0 Red Blood Count 4.99 Hemoglobin 15.7 Hematocrit 45.4 Mean Corpuscular Volume 91.0 Mean Corpuscular Hemoglobin 31.5 Mean Corpuscular Hemoglobin Concent 34.7 Red Cell Distribution Width 11.9 Platelet Count 246 Mean Platelet Volume 9.1 Neutrophils (%) (Auto) 83.2 Lymphocytes (%) (Auto) 7.3 Monocytes (%) (Auto) 5.6 Eosinophils (%) (Auto) 1.3 Basophils (%) (Auto) 2.6 Neutrophils # (Auto) 12.5 Lymphocytes # (Auto) 1.1 Monocytes # (Auto) 0.8 Eosinophils # (Auto) 0.2 Basophils # (Auto) 0.4 CBC Comment AUTO DIFF Differential Total Cells Counted 100 Neutrophils % (Manual) 74 Band Neutrophils % 11 Lymphocytes % 9 Monocytes % 3 Eosinophils % 1 Basophils % 2 Neutrophils # (Manual) 12.8 Differential Comment FINAL DIFF MANUAL Platelet Estimate NORMAL Platelet Morphology Comment CLUMPED Red Cell Morphology Comment NORMAL Blood Urea Nitrogen 21 Creatinine 1.00 Random Glucose 135 Total Protein 7.7 Albumin 3.7 Calcium Level 9.5 Alkaline Phosphatase 29 Aspartate Amino Transf (AST/SGOT) 31 Alanine Aminotransferase (ALT/SGPT) 38 Total Bilirubin 0.3 Sodium Level 139 Potassium Level 3.9 Chloride Level 104 Carbon Dioxide Level 23.8 Anion Gap 11 Estimat Glomerular Filtration Rate 55 Magnesium Level 2.1 Troponin I LESS THAN 0.02 Lipase 132 Urine Color YELLOW Urine Turbidity CLEAR Urine pH 6.0 Urine Specific [place] GREATER/EQUAL 1.030 Urine Protein 300 OR GREATER Urine Glucose (UA) NEG Urine Ketones TRACE Urine Occult Blood TRACE Urine Nitrite NEG Urine Bilirubin NEG Urine Urobilinogen 0.2 Urine Leukocyte Esterase NEG Urine WBC 0-2 Urine Squamous Epithelial Cells 0-5 Microscopic Urinalysis Comment CULT NOT INDICATED Lactic Acid Level 3.4 2.3 Test 11/26/17 02:57 11/26/17 05:08 Lactic Acid Level 2.3 White Blood Count 6.4 Red Blood Count 4.22 Hemoglobin 13.2 Hematocrit 38.7 Mean Corpuscular Volume 91.7 Mean Corpuscular Hemoglobin 31.4 Mean Corpuscular Hemoglobin Concent 34.2 Red Cell Distribution Width 12.0 Platelet Count 212 Mean Platelet Volume 9.4 Neutrophils (%) (Auto) 65.3 Lymphocytes (%) (Auto) 23.1 Monocytes (%) (Auto) 6.5 Eosinophils (%) (Auto) 4.5 Basophils (%) (Auto) 0.6 Neutrophils # (Auto) 4.2 Lymphocytes # (Auto) 1.5 Monocytes # (Auto) 0.4 Eosinophils # (Auto) 0.3 Basophils # (Auto) 0.0 CBC Comment DIFF FINAL Differential Comment Blood Urea Nitrogen 17 Creatinine 0.83 Random Glucose 108 Total Protein 6.5 Albumin 3.0 Calcium Level 8.0 Alkaline Phosphatase 24 Aspartate Amino Transf (AST/SGOT) 25 Alanine Aminotransferase (ALT/SGPT) 34 Total Bilirubin 0.6 Sodium Level 143 Potassium Level 3.6 Chloride Level 110 Carbon Dioxide Level 24.7 Anion Gap 8 Estimat Glomerular Filtration Rate 68 Date/Time Source Procedure Growth Status 11/25/17 17:30 Blood Peripheral Aerobic Blood Culture Pending Received 11/25/17 17:30 Blood Peripheral Anaerobic Blood Culture Pending Received Result Diagram: 11/26/17 0508 11/26/17 0508 Imaging Last Impressions Chest X-Ray 11/25/17 0000 Signed Impressions: CONCLUSION: Mild complicated cardiomegaly otherwise negative Abdomen/Pelvis CT 11/25/17 0000 Signed Impressions: CONCLUSION: 1. No definite abnormality to explain the patient's abdominal pain identified. 2. Incidental 2.8 cm simple cyst arising from the right kidney. 3. The patient is post cholecystectomy. 4. Fibroids within the uterus. Septic Shock Reassessment Septic shock perfusion: reassessment completed Caprini VTE Risk Assessment Caprini VTE Risk Assessment: Mod/High Risk (score >= 2) Caprini Risk Assessment Model Point Value = 1 Point Value = 2 Point Value = 3 Point Value = 5 Age 41-60 Minor surgery BMI > 25 kg/m2 Swollen legs Varicose veins or History of unexplained or recurrent spontaneous Oral contraceptives or hormone replacement Sepsis (< 1 month) Serious lung disease, including pneumonia (< 1 month) Abnormal pulmonary function Acute myocardial infarction Congestive heart failure (< 1 month) History of inflammatory bowel disease Medical patient at bed rest Age 61-74 Arthroscopic surgery Major open surgery (> 45 min) Laparoscopic surgery (> 45 min) Malignancy Confined to bed (> 72 hours) Immobilizing plaster cast Central venous access Age >= 75 History of VTE Family history of VTE Factor V Leiden Prothrombin [id number] Lupus anticoagulant Anticardiolipin antibodies Elevated serum homocysteine Heparin-induced thrombocytopenia Other congenital or acquired thrombophilia Stroke (< 1 month) Elective arthroplasty Hip, pelvis, or leg fracture Acute spinal cord injury (< 1 month) Prophylaxis Regimen Total Risk Factor Score Risk Level Prophylaxis Regimen 0-1 Low Early ambulation 2 Moderate Order ONE of the following: *Sequential Compression Device (SCD) *Heparin 5000 units SQ BID 3-4 Higher Order ONE of the following medications: *Heparin 5000 units SQ TID *Enoxaparin/Lovenox 40 mg SQ daily (WT < 150 kg, CrCl > 30 mL/min) *Enoxaparin/Lovenox 30 mg SQ daily (WT < 150 kg, CrCl > 10-29 mL/min) *Enoxaparin/Lovenox 30 mg SQ BID (WT < 150 kg, CrCl > 30 mL/min) AND/OR *Sequential Compression Device (SCD) 5 or more Highest Order ONE of the following medications: *Heparin 5000 units SQ TID (Preferred with Epidurals) *Enoxaparin/Lovenox 40 mg SQ daily (WT < 150 kg, CrCl > 30 mL/min) *Enoxaparin/Lovenox 30 mg SQ daily (WT < 150 kg, CrCl > 10-29 mL/min) *Enoxaparin/Lovenox 30 mg SQ BID (WT < 150 kg, CrCl > 30 mL/min) AND *Sequential Compression Device (SCD) Assessment and Plan Problem List: (1) Food poisoning ICD Code: T62.91XA - Toxic effect of unspecified noxious substance eaten as food, accidental (unintentional), initial encounter (2) Hypertension ICD Code: I10 - Essential (primary) hypertension Assessment and Plan This is a pleasant 71-year-old female patient with a known medical history of diabetes and hypertension who presented to the ED with complaints of lightheadedness, dizziness and vomiting. Patient states that she was eating a turkey sandwich for lunch and shortly after developed lightheadedness and dizziness. Food poisoning with nausea and vomiting with associated lightheadedness and dizziness - Met SIRS criteria with tachycardia and leukocytosis, source unknown. All symptoms have improved. - White blood cell 15 point on presentation, has improved to 6.4 overnight. Patient has been afebrile. UA was negative. - Patient was placed on IV fluids, given 2 L NS bolus in ED. Was placed on Zosyn IV. Will DC. No signs of infection. - CT of abdomen showing no abnormality or acute change. CXR was negative. - Patient is tolerating p.o. intake well. - Vital signs are stable. Hypertension, chronic: Blood pressure mildly elevated on presentation, systolic in the 160s. Possibly secondary to IV hydration. Continued home losartan. Monitor blood pressure trends. Type 2 diabetes mellitus, chronic: Was placed on sliding scale, blood sugars have been controlled. Will discharge home on metformin as prescribed by PCP. Management for follow-up with her primary care doctor. Hypothyroidism, chronic: We will continue home levothyroxine. DVT Prophylaxis: SCDs. Ambulation. Discharge patient to home Condition on discharge: Improved Heart healthy diet as tolerated Ad Myrna activity Rx written: Please see discharge orders. Follow-up with primary care physician. This note was transcribed by frankie Jones. I, Dr. Tripp Ramos personally performed the history, physical exam, and medical decision making; and confirmed the accuracy of the information in the transcribed note. Authenticated by Dr. Tripp Ramos on 11/26/17 at 09:26. Code Status Full code Discussed Condition With Patient Vielka Jones November 26, 2017 09:32 Tripp Ramos MD November 26, 2017 09:33
--- NOTE | 2017-11-26 09:42 | HHI.DCPOC ---
Discharge Care Plan Diagnosis: (1) Food poisoning (2) Hypertension (3) Diabetes Goals to Promote Your Health * To prevent worsening of your condition and complications * To maintain your health at the optimal level Directions to Meet Your Goals Take your medications as prescribed Follow your dietary instruction Follow activity as directed Keep your appointments as scheduled Take your immunizations and boosters as scheduled If your symptoms worsen call your PCP, if no PCP go to Urgent Care Center or Emergency Room Smoking is Dangerous to Your Health. Avoid second hand smoke Call the 24-hour hour crisis hotline for domestic abuse at Vielka Jones November 26, 2017 09:42
[2017-11-26 10:44] VITALS: BP 146/82; PULSE 84; RESP 18; TEMP 99; O2SAT 95
[2017-11-26] MEDS ORDERED: METHOCARBAMOL 500 MG TAB PO SCH (14:00)
--- NOTE | 2017-11-26 14:16 | EKG ---
Date Performed: 11/25/2017 Time Performed: 15:45:49 PTAGE: 71 years EKG: Sinus rhythm WITH FREQUENT SUPRAVENTRICULAR PREMATURE COMPLEXES LOW QRS VOLTAGE IN PRECORDIAL LEADS NONSPECIFIC S T & T-WAVE ABNORMALITY ABNORMAL RHYTHM ECG PREVIOUS TRACING : 06/19/2009 11.38 DOCTOR: Sarath Garcia Interpretating Date/Time 11/26/2017 14:14:59
== END 2017-11-26 11:25 | disposition home or self-care (01) ==
LOC: PHED 14:46 → PHEDA 18:56 → PH3B 21:21
PROVIDERS: ADMIT Hospitalist; ATTEND Hospitalist
DX: T62.91XA Toxic effect of unspecified noxious substance eaten as food, accidental (unintentional), initial encounter (principal); R42 Dizziness and giddiness; R11.2 Nausea with vomiting, unspecified; R53.1 Weakness; I10 Essential (primary) hypertension; E11.9 Type 2 diabetes mellitus without complications; M81.0 Age-related osteoporosis without current pathological fracture; R25.2 Cramp and spasm; E03.9 Hypothyroidism, unspecified; Z79.899 Other long term (current) drug therapy; Z79.84 Long term (current) use of oral hypoglycemic drugs; R09.82 Postnasal drip; N28.1 Cyst of kidney, acquired; R94.31 Abnormal electrocardiogram [ECG] [EKG]
CPT/HCPCS: 71045; 74177; 80053; 81001; 82948; 83605; 83690; 83735; 84484; 85007; 85025; 85027; 87040; 93005; 96361; 96365; 96366; 99285; G0378; J2543; J7030; Q9967